=== PATIENT | female | born 1955 | race Caucasian/White ===

== ENCOUNTER 2023-03-25 06:38 | Emergency (ER) | payer MEDICARE, OTHER ==
[~2023-03-25] VITALS: Ht 165.1 cm; Wt 82.8 kg
[2023-03-25] MEDS ORDERED: CYMB1CAP5 PO (07:18)
[2023-03-25] MEDS ORDERED: CRES10TA PO (07:18)
[2023-03-25] MEDS ORDERED: METH-1164 PO (07:57)
[2023-03-25] MEDS ORDERED: methocarbamoL 500 MG TAB PO ONE (08:00)
[2023-03-25 08:26] VITALS: BP 155/88; TEMP 97.8; O2SAT 98
== END 2023-03-25 08:40 | disposition home or self-care (01) ==
LOC: M ED 06:38
DX: S46.811A Strain of other muscles, fascia and tendons at shoulder and upper arm level, right arm, initial encounter (principal); E78.5 Hyperlipidemia, unspecified; F10.10 Alcohol abuse, uncomplicated; Z79.899 Other long term (current) drug therapy